=== PATIENT | male | born 1950 | race Caucasian/White ===

== ENCOUNTER 2025-04-22 15:18 | Outpatient (AMB) | payer OTHER, SELFPAY ==
--- NOTE | 2025-04-22 15:29 | MHC.PC.OV ---
Vital Signs 04/22/25 15:34 Height 6 ft Weight 191 lb BMI 25.9 BP 126/74 Blood Pressure Location Rt brachial Position Sitting Pulse 71 Pulse Source Pulse Oximeter Temp 98.3 F Temp Source Temporal Artery Scan Pulse Oximetry (%) 98 Oxygen Delivery Method Room Air Intake Visit Reasons: Cyst of Bottom R Foot/ Dr Varghese Probation Supervisor Required: No Accompanied by: Self / Same As Patient Allergies No Known Allergies Allergy (Verified 04/22/25 15:29) Tobacco use date assessed: 04/22/25 Fall risk assessment: No Falls in past year Last assessed Fall Risk: 04/22/25 Dental Screening Dental Screen Date: 04/22/25 Did you have a dental visit in the last 12 months?: Yes Did you have a dental problem in the last 6 months where you did not have access to dental care?: No HPI HPI Comments History of Present Illness Details The patient is a 74-year-old male without significant PMH presenting with a plantar wart on the right foot and concerns regarding preventative screenings due to family history of cancer. He is not currently on medication. The plantar wart has been causing discomfort, particularly due to the patient's habit of walking barefoot and wearing sandals during the summer. The patient is considering dermatological intervention or medication for treatment. The patient has a family history of cancer, with his father having of prostate cancer and his mother of breast cancer. He is concerned about his PSA levels and cholesterol, and desires these to be checked as part of his preventative care. The patient maintains an active lifestyle, engaging in gardening and house painting, and takes two aspirin nightly to alleviate discomfort from physical activity. He reports no current medications aside from aspirin and has no significant symptoms such as heart palpitations. [facility] Medical History (Updated 04/29/25 @ 06:18 by JOSELUIS Wills) Plantar wart of right foot Family History (Updated 04/22/25 @ 15:40 by Jojo Fonseca MA) Mother Breast cancer Father Prostate cancer Social History Housing: House Patient Tobacco Use Status: Former Tobacco user e-Cigarette/Vaping Use: Former Use service: No Current occupational status: retired Cognitive needs: No Hearing needs: No Vision needs: Yes (reading glasses) Questionnaire PHQ-9 Over the last 2 weeks, how often have you been bothered by any of the following problems? 1. Little interest or pleasure in doing things: not at all 2. Feeling down, depressed, or hopeless: not at all 3. Trouble falling or staying asleep, or sleeping too much: not at all 4. Feeling tired or having little energy: not at all 5. Poor appetite or overeating: not at all 6. Feeling bad about yourself - or that you are a failure or have let yourself or your family down: not at all 7. Trouble concentrating on things, such as reading the newspaper or watching television: not at all 8. Moving or speaking so slowly that other people could have noticed. Or the opposite - being so fidgety or restless that you have been moving around a lot more than usual: not at all Source: Developed by Drs. Estrada Bernal, Donna Wilkerson, Leonard Welch and colleagues, with an educational quang from [employer]. Thrive Questionnaire Date Thrive assessed: 04/22/25 I am a: Patient Within the past 12 months, did the food you bought not last and you didn't have the money to get more?: Never true Within the past 12 months, did you worry whether your food would run out before you got money to buy more?: Never true Do you have trouble paying for medicines?: No Do you have trouble getting transportation to medical appointments?: No Do you have trouble paying your heating and electricity bill?: No Do you have trouble taking care of your child, family member or friend?: No Do you have trouble with day-to-day activities such as bathing, preparing meals, shopping, managing finances, etc.?: No Are you currently unemployed and looking for a job?: No Are you interested in more education?: No THRIVE Score: 0 AUDIT C Alcohol Use Questionnaire (AUDIT-C) 1. How often do you have a drink containing alcohol?: Monthly or less 2. How many drinks containing alcohol do you have on a typical day when you are drinking?: 1 or 2 3. How often do you have six or more drinks on one occasion?: Less than monthly Total Score: 2 KYARA-7 AMB Questionnaire KYARA-7 Date KYARA - 7 assessed: 04/22/25 Feeling nervous, anxious, or on edge: 3 = Nearly every day Not being able to stop or control worryin = Not at all Worrying too much about different things: 0 = Not at all Trouble relaxin = Not at all Being so restless that it is hard to sit still: 0 = Not at all Becoming easily annoyed or irritable: 0 = Not at all Feeling afraid as if something awful might happen: 0 = Not at all Total KYARA-7 score (0-4 normal; 5-9 mild; 10-14 moderate; 15-21 severe): 3 Source: Developed by Drs. Estrada Bernal, Donna Wilkerson, Leonard Welch and colleagues, with an educational quang from [employer]. Review of Systems Const Details: CONSTITUTIONAL Negative HEAD/NECK Negative EAR/NOSE/MOUTH/THROAT Negative RESPIRATORY Negative CARDIOVASCULAR Negative GASTROINTESTINAL Negative SKIN Reports discomfort from plantar wart on the right foot NEUROLOGICAL Negative PSYCHIATRIC Negative . Physical exam (Primary Care) Vital Signs: Last Vital Signs Temp 98.3 F 04/22/25 15:34 Pulse 71 04/22/25 15:34 BP 126/74 04/22/25 15:34 Pulse Ox 98 04/22/25 15:34 Oxygen Delivery Method Room Air 04/22/25 15:34 BMI result Body Mass Index 25.9 GENERAL Well developed, Well nourished, in no apparent distress HEENT Head-Normocephalic Eyes- PERRLA, EOMI, Conjuctiva clear, lids WNL Ears- Canals clear, TMs WNL Mouth/Throat-No lesions, no erythema, no exudate Neck- Supple, No lymphadenopathy, thyroid WNL RESPIRATORY Normal I:E, Clear to auscultation CARDIOVASCULAR Regular, rate and rhthym, No murmurs or rubs GASTROINTESTINAL Soft, nontender, normal bowel sounds, no masses SKIN Plantar wart on the ball of right foot NEUROLOGICAL Gait normal PSYCHIATRIC Oriented to person, place and time Mood and affect WNL Appearance WNL Speech WNL Thought processes WNL Tobacco/Smoking Status: Tobacco use Status Tobacco use date assessed 04/22/25 04/22/25 15:30 Patient Tobacco Use Status Former Tobacco user 04/22/25 15:42 e-Cigarette/Vaping Use Former Use 04/22/25 15:42 Thrive Assessment: Date of Thrive Assessment Date Thrive assessed 04/22/25 04/22/25 15:30 Coding Level of Care Code New Pt New Pt Level 4 (24524) Patient Type New Diagnoses Plantar wart of right foot B07.0 Health care maintenance Z00.00 Time Spent (min) 30 Comment Time was spent on Chart review, H&P, Patient education and orders Assessment & Plan Assessment & Plan (1) Plantar wart of right foot: Code(s): B07.0 - Plantar wart Category: Medical Plan: The patient is advised to visit a it help desk manager for the management of the plantar wart on the right foot. The it help desk manager may perform procedures such as debridement and cryotherapy or electrosurgery to remove the wart. Referral places (2) Health care maintenance: Code(s): Z00.00 - Encounter for general adult medical examination without abnormal findings Plan: Due to the family history of prostate cancer, a PSA screening is requested. The patient will have the PSA test conducted at a nearby facility for convenience. A lipid profile screening is recommended to assess cholesterol levels. This will be conducted alongside the PSA screening for efficiency. An electrolyte panel is recommended to monitor potassium levels, which were previously elevated. This test will be conducted with the other screenings to ensure comprehensive evaluation. Plan I discussed with the patient the presence of a plantar wart on his right foot and recommended a referral to a it help desk manager for further management. We also reviewed PSA screening due to his family history of prostate cancer and agreed to conduct this test along with a lipid profile and electrolyte panel to ensure comprehensive preventative care. Orders: Orders Lipid Panel 04/22/25 E78.5 - Hyperlipidemia, unspecified Electrolytes 04/22/25 E87.5 - Hyperkalemia PSA, Ultra Sensitive 04/22/25 Z12.5 - Encounter for screening for malignant neoplasm of prostate Referrals Podiatry Referral B07.0 - Plantar wart Patient Instructions: - Schedule an appointment with a it help desk manager for the plantar wart. - Complete the lab work for PSA, lipid profile, and electrolytes as ordered. - Maintain current physical activity and aspirin regimen unless advised otherwise.
[2025-04-22 15:34] VITALS: BP 126/74; PULSE 71; TEMP 36.8; O2SAT 98; BMI 25.9
--- OUTSIDE RECORDS SUMMARY | 2025-04-22 18:24 | XMS_ITS | Clinical Summary ---
Author Organization [facility] Address [address] [phone] Phone Care Team Providers Care Wood Tile Installation Helper Name Role Phone Jarek Varghese MD Primary Care Provider Social History Tobacco Use Types Packs/Day Years Used Date Smoking Tobacco: Never Assessed Education Answer Date Recorded Are you interested in more education? Not on candice e 09/02/2023 Are you concerned about learning? Not on file 09/02/2023 No 09/02/2023 No 09/02/2023 Digital Access Answer Date Recorded No 09/02/2023 No 09/02/2023 Reliable internet access at home? Not on file 09/02/2023 Device with a working camera? Not on file Sex and Gender Information Value Date Recorded Sex Assigned at Not on file Legal Sex Male 12:35 PM EDT Gender Identity Not on file Sexual Orientation Not on file Plan of Treatment Not on file Medical Devices Not on file Insurance [facility] MEDICARE SUPPLEMENT MEDICARE PART A & B MEDICARE PART A & B [facility] MEDIC[facility] SUPPLEMENT [facility] MEDICARE SUPPLEMENT [facility] MEDIC[place] SUPP[place] MED[place] A [place] [id number] [facility] MEDICARE SUPPLEMENT [facility] MEDICARE SUPPLEMENT MEDICARE PART A & B [facility] MEDICARE SUPPLEMENT MEDICARE PART A & B [facility] MEDICARE SUPPLEMENT MEDICARE PART A & B Care Teams Wood Tile Installation Helper Relationship Specialty Start Date End Date Jarek Varghese MD [address] [place] [address] Dr MORALES [address] [place] [phone] PCP - General Internal Medicine 05/26/18 Additional Source Comments The information contained in this document represents components of the legal health record. It is not the complete legal health record.[facility]
== END 2025-04-22 16:14 | disposition home or self-care (01) ==
PROVIDERS: PCP Internal Medicine; Visit Provider Physician Assistant Medical
DX: B07.0 Plantar wart (principal)

== ENCOUNTER → 2025-04-22 15:18 | Outpatient (BNVA) | payer OTHER, SELFPAY | PROVIDERS: PCP Internal Medicine; Visit Provider Physician Assistant Medical | DX: Z13.31 Encounter for screening for depression (principal); Z13.39 Encounter for screening examination for other mental health and behavioral disorders | CPT/HCPCS: 96127 ==

== ENCOUNTER 2025-05-02 09:39 | Outpatient (AMB) | payer OTHER, SELFPAY ==
[2025-05-02 09:50] VITALS: BMI 27.4
--- NOTE | 2025-05-02 09:50 | MHC.OFFVIS ---
Vital Signs 05/02/25 09:50 Height 5 ft 10 in Weight 191 lb BMI 27.4 Intake Visit Reasons: painful plantar wart on ball of right foot. Intake Note: Adrián is a 74 year old male who presents today as a new patient for an evaluation of his plantar wart on the ball of his right foot. Patient reports this has been going on for about 2 months. he states he experiences pain when he is ambulating or standing but at rest it improves. Allergies No Known Allergies Allergy (Verified 04/22/25 15:29) HPI Comments Details: The patient is a 74-year-old male with a past medical history as seen below presenting with a plantar wart on the right foot. The issue began a couple of months ago when the patient noticed a small, sensitive bump on the foot. Initially, the patient delayed seeking medical attention, hoping the bump would decrease in size, but it instead increased. The patient consulted with a nurse practitioner who diagnosed the condition as a plantar wart and advised seeing a canal lock tender chief operator. The patient reports that the wart has been causing sensitivity when walking, especially if any particles get in between his shoes. There has been no drainage or signs of infection noted. He denies any inciting injury. He denies any other pedal concerns at this time. He denies any current foot nausea, vomiting, fever, or chills. [facility] Medical History (Updated 05/02/25 @ 10:57 by Rayna Diaz DPM) Pain in right foot Other specified epidermal thickening Plantar wart of right foot Family History (Updated 04/22/25 @ 15:40 by Jojo Fonseca MA) Mother Breast cancer Father Prostate cancer Social History Housing: House Patient Tobacco Use Status: Former Tobacco user e-Cigarette/Vaping Use: Former Use service: No Current occupational status: retired Cognitive needs: No Hearing needs: No Vision needs: Yes (reading glasses) Review of Systems Const Details: - Integumentary: Reports sensitivity on the foot due to plantar wart. Denies drainage or much purulence. All systems reviewed & are unremarkable except as noted in HPI and below Physical Exam Vital Signs: BMI result Body Mass Index 27.4 Extrem Other: Right lower extremity focused physical exam: Derm: Hyperkeratotic lesion consistent with a plantar wart noted to the plantar aspect of the right foot in the area of the 4th metatarsal measuring approximately 0.6 x 0.6 cm. Pinpoint bleeding noted upon debridement. No purulence or drainage noted. No erythema or edema noted. Vasc: DP/PT pulses palpable. Capillary refill time less than 3 seconds. No varicosities noted. Pedal hair present. Neuro: Protective sensation is grossly intact. MSK: Mild tenderness on palpation to the plantar wart. No fluctuance noted. Range of motion of the forefoot, hindfoot, and ankle within normal limits. No crepitus noted. Ankle/foot/toe images:  1. Office Procedures AMB Wart Destruction Podiatry Details of Procedure: Debrided the hyperkeratotic lesion to the right foot with a 15 blade. Applied cantharidin 0.7% solution to the plantar wart. After application applied a Band-Aid to the area. 01727 - Wart Destruction (<15) Additional procedure code (CPT) needed (31427) Office Meds cantharidin 0.7 % topical solution with applicator Performing Provider: Rayna Diaz DPM Performing Location: [facility] [place] [place] [facility] Administered by: Rayna Diaz DPM on 05/02/25 10:57 Dose Route Admin Location Dispensed Lot Number Expiration Date [facility] Electric Meter Installer Helper 1 appl topical 1 appl [id number] [employer] Results Reviewed Results Reviewed: Reviewed patient's previous prominence with Internal Medicine and dermatology. Assessment & Plan Assessment & Plan (1) Plantar wart of right foot: Code(s): B07.0 - Plantar wart Category: Medical (2) Other specified epidermal thickening: Code(s): L85.8 - Other specified epidermal thickening Category: Medical (3) Pain in right foot: Code(s): M79.671 - Pain in right foot Category: Medical Plan Patient was informed and verbally consented to the use of an ambient scribe for clinic note documentation during this visit. I explained to the patient that the plantar wart is caused by a virus, creating its own blood vessels. We discussed the treatment plan, which involves shaving the hyperkeratotic lesion to the wart to achieve pinpoint bleeding, allowing the medication to penetrate effectively. I informed the patient that the wart currently appears mild and that follow-up in two weeks is necessary to continue treatment. 1. Plantar Wart - Plan includes shaving down the wart to reach pinpoint bleeding, followed by application of medication. - Patient advised to return in two weeks for follow-up treatment. - Keep the Band-Aid on for the rest of the day and remove it tomorrow. - No need to apply any ointments; keep the area clean with a Band-Aid if desired. Return for a follow-up appointment in two weeks for continued cantharidin treatment.. Orders: Orders AMB Wart Destruction Podiatry Today B07.0 - Plantar wart, L85.8 - Other specified epidermal thickening, M79.671 - Pain in right foot Coding Level of Care Code New Pt Level 4 (68974) Diagnoses Plantar wart of right foot B07.0 Other specified epidermal thickening L85.8 Pain in right foot M79.671 CPT Codes Destruction of Wart - CPT: 44922 - Wart Destruction (<15) ([id number]) Destruction of Wart - All charges added?: Additional procedure code (CPT) needed ([id number]) Time Spent (min) 60
--- OUTSIDE RECORDS SUMMARY | 2025-05-02 11:18 | XMS_ITS | Clinical Summary ---
Author Organization [facility] Address [address] [phone] Phone Care Team Providers Care Belt Lacer Name Role Phone Jarek Varghese MD Primary [...] file Medical Devices Not on file Insurance [facility] MEDICARE SUPPLEMENT MEDICARE PART A & B MEDICARE PART A & B [facility] MEDICARE SUPPLEMENT [facility] MEDICARE SUPPLEMENT [facility] MEDICARE SUPP[place] MED[place] A [place] [id number] [facility] MEDICARE SUPPLEMENT [facility] MEDICARE SUPPLEMENT MEDICARE PART A & B [facility] MEDICARE SUPPLEMENT MEDICARE PART A & B [facility] MEDICARE SUPPLEMENT MEDICARE PART A & B Care Teams Belt Lacer Relationship Specialty Start Date End Date Jarek Varghese MD [address] [place] [address] Dr MORALES [address] [place] [id number] PCP - General Internal Medicine 05/26/18 Additional Source Comments The information contained in this document represents components of the legal health record. It is not the complete legal health record.[facility]
== END 2025-05-02 10:38 | disposition home or self-care (01) ==
LOC: HO.HPODS 09:40
PROVIDERS: PCP Internal Medicine; Visit Provider Student in an Organized Health Care Education/Training Program
DX: B07.0 Plantar wart (principal); L85.8 Other specified epidermal thickening; M79.671 Pain in right foot
CPT/HCPCS: 17110; 99203

== ENCOUNTER → 2025-05-02 09:39 | Outpatient (BNVA) | payer OTHER, SELFPAY | PROVIDERS: PCP Internal Medicine; Visit Provider Student in an Organized Health Care Education/Training Program | DX: B07.0 Plantar wart (principal); L85.8 Other specified epidermal thickening; M79.671 Pain in right foot | CPT/HCPCS: 17110; J7354 ==

== ENCOUNTER 2025-05-13 10:21 | Outpatient (AMB) | payer OTHER, SELFPAY ==
[2025-05-13 10:29] VITALS: BMI 27.4
--- NOTE | 2025-05-13 10:29 | A.OFFVIS_ITS ---
Vital Signs 05/13/25 10:29 Height 5 ft 10 in Weight 191 lb BMI 27.4 Intake Visit Reasons: for plantar wart management Intake Note: Adrián is a 74 year old male who presents today for a follow up on his plantar wart of the right foot. A wart deconstruction was performed in office on 05/02/25. Patient reports the initial pain has gone away after a couple of days however the wart is still there and he has been maintaining the area clean. Allergies No Known Allergies Allergy (Verified 05/13/25 10:31) HPI Comments Details: The patient is a 74-year-old male presenting for follow-up of right foot with plantar wart management. The patient reported that the right foot was painful for a few days initially after the previous visit/treatment, but the pain subsided over time. He has been diligent in keeping the area clean and covered with a Band-Aid. He experienced pain while walking during the first couple of days, but it has since resolved. The plantar wart appears to be reduced in size. The reduction in size indicates improvement, with less blood vessel formation observed. He denies any other pedal concerns at this time. He denies any current foot nausea, vomiting, fever, or chills. [facility] Medical History (Updated 05/02/25 @ 10:57 by Rayna Diaz DPM) Pain in right foot Other specified epidermal thickening Plantar wart of right foot Family History (Updated 04/22/25 @ 15:40 by Jojo Fonseca MA) Mother Breast cancer Father Prostate cancer Social History Housing: House Patient Tobacco Use Status: Former Tobacco user e-Cigarette/Vaping Use: Former Use service: No Current occupational status: retired Cognitive needs: No Hearing needs: No Vision needs: Yes (reading glasses) Review of Systems Const Details: - Integumentary: Plantar wart to the right foot. All systems reviewed & are unremarkable except as noted in HPI and below Physical Exam Vital Signs: BMI result Body Mass Index 27.4 Extrem Other: Right lower extremity focused physical exam: Derm: Hyperkeratotic lesion consistent with a plantar wart noted to the plantar aspect of the right foot in the area of the 4th metatarsal measuring approximately 0.5 x 0.5 cm (reduced in size in comparison to last visit). Pinpoint bleeding noted upon debridement (less blood vessle formation noted). No purulence or drainage noted. No erythema or edema noted. Vasc: DP/PT pulses palpable. Capillary refill time less than 3 seconds. No varicosities noted. Pedal hair present. Neuro: Protective sensation is grossly intact. MSK: No tenderness on palpation noted to the plantar wart. No fluctuance noted. Range of motion of the forefoot, hindfoot, and ankle within normal limits. No crepitus noted. Office Procedures AMB Wart Destruction Podiatry Details of Procedure: Debrided the hyperkeratotic lesion using a #15 blade until pinpoint bleeding noted. Next applied 0.7% Cantharidin solution to the plantar wart and applied a bandaid to the area. 16995 - Wart Destruction (<15) Additional procedure code (CPT) needed (99733) Office Meds cantharidin 0.7 % topical solution with applicator Performing Provider: Rayna Diaz DPM Performing Location: [facility] [place] [facility] Administered by: Rayna Diaz DPM on 05/13/25 10:58 Dose Route Admin Location Dispensed Lot Number Expiration Date [facility] Forest [employer] Professor 1 appl topical 1 appl [id number] [employer] Results Reviewed Results Reviewed: Reviewed patient's previous prominence with Internal Medicine and dermatology. Assessment & Plan Assessment & Plan (1) Plantar wart of right foot: Code(s): B07.0 - Plantar wart Category: Medical (2) Other specified epidermal thickening: Code(s): L85.8 - Other specified epidermal thickening Category: Medical (3) Pain in right foot: Code(s): M79.671 - Pain in right foot Category: Medical Plan Patient was informed and verbally consented to the use of an ambient scribe for clinic note documentation during this visit. I discussed with the patient the current status of the plantar wart, noting the reduction in size and decreased vascularity, which are positive signs of healing. We agreed to continue the current treatment plan and scheduled a follow-up in two weeks to monitor progress. 1. Plantar Wart, right foot - Debrided the wart to reach pinpoint bleeding, followed by application of Cantharidin. - Patient is to keep the Band-Aid on for the rest of the day and remove it tomorrow. - No need to apply any ointments; keep the area clean with a Band-Aid. - Patient is to monitor his feet daily, and is to monitor for any signs of infection or increased pain. Return for a follow-up appointment in two weeks for continued evaluation and treatment. Orders: Orders AMB Wart Destruction Podiatry Today B07.0 - Plantar wart, L85.8 - Other specified epidermal thickening, M79.671 - Pain in right foot Coding Level of Care Code Est Pt Level 4 (22698) Diagnoses Plantar wart of right foot B07.0 Other specified epidermal thickening L85.8 Pain in right foot M79.671 CPT Codes Destruction of Wart - CPT: 00142 - Wart Destruction (<15) ([id number]) Destruction of Wart - All charges added?: Additional procedure code (CPT) needed ([id number]) Time Spent (min) 45
--- OUTSIDE RECORDS SUMMARY | 2025-05-13 11:31 | XMS_ITS | Clinical Summary ---
Author Organization [facility] Address [address] [phone] Phone Care Team Providers Care Digital Performance Analyst Name Role Phone Jarek Varghese MD Primary [...] file Medical Devices Not on file Insurance [facility] MEDICARE SUPPLEMENT MEDICARE PART A & B MEDICARE PART A & [facility] MEDIC[facility] SUPPLEMENT [facility] MEDICARE SUPPLEMENT [facility] MEDICARE SUPP[place] A [place] [id number] [facility] MEDICARE SUPPLEMENT [facility] MEDICARE SUPPLEMENT MEDICARE PART A & B [facility] MEDICARE SUPPLEMENT MEDICARE PART A & B [facility] MEDICARE SUPPLEMENT MEDICARE PART A & B Care Teams Digital Performance Analyst Relationship Specialty Start Date End Date Jarek Varghese MD [address] [place] [address] Dr MORALES [address] [place] [id number] PCP - General Internal Medicine 05/26/18 Additional Source Comments The information contained in this document represents components of the legal health record. It is not the complete legal health record.[facility]
== END 2025-05-13 10:42 | disposition home or self-care (01) ==
LOC: HO.HPODS 10:22
PROVIDERS: PCP Internal Medicine; Visit Provider Student in an Organized Health Care Education/Training Program
DX: B07.0 Plantar wart (principal); M79.671 Pain in right foot; L85.8 Other specified epidermal thickening
CPT/HCPCS: 17110

== ENCOUNTER → 2025-05-13 10:21 | Outpatient (BNVA) | payer OTHER, SELFPAY | PROVIDERS: PCP Internal Medicine; Visit Provider Student in an Organized Health Care Education/Training Program | DX: B07.0 Plantar wart (principal); L85.8 Other specified epidermal thickening; M79.671 Pain in right foot | CPT/HCPCS: 17110; J7354 ==

== ENCOUNTER 2025-05-28 09:31 | Outpatient (AMB) | payer OTHER, SELFPAY ==
[2025-05-28 09:38] VITALS: BMI 27.4
--- NOTE | 2025-05-28 09:38 | A.OFFVIS_ITS ---
Vital Signs 05/28/25 09:38 Height 5 ft 10 in Weight 191 lb BMI 27.4 Intake Visit Reasons: OV- Right Plantar Wart Intake Note: Adrián is a 74 year old male who presents today for a follow up of right foot plantar wart. At the last visit a Wart destruction completed. Patient was instructed to keep area clean with an band-aid. Pt reports he has experiencing slight tenderness in his foot when he bears weight while ambulating. Overall he states his foot is healing well and he does not have any concercns at this time. Allergies No Known Allergies Allergy (Verified 05/28/25 09:52) HPI Comments Details: The patient is a 74-year-old male presenting for follow-up of a right foot plantar wart. The condition has been persistent, with the patient noting sensitivity in the affected area within the 1st week of the last treatment. He denies any current pain today to the area. The patient has been adhering to aftercare instructions, including keeping the area clean and protected with a Band-Aid. He has reduced the use of flip-flops due to weather conditions, opting for clean shoes and socks instead. Denies any new pedal injuries. He denies any other pedal concerns at this time. He denies any current foot nausea, vomiting, fever, or chills. [facility] Medical History (Updated 05/02/25 @ 10:57 by Rayna Diaz DPM) Pain in right foot Other specified epidermal thickening Plantar wart of right foot Family History (Updated 04/22/25 @ 15:40 by Jojo Fonseca MA) Mother Breast cancer Father Prostate cancer Social History Housing: House Patient Tobacco Use Status: Former Tobacco user e-Cigarette/Vaping Use: Former Use service: No Current occupational status: retired Cognitive needs: No Hearing needs: No Vision needs: Yes (reading glasses) Review of Systems Const Details: - Integumentary: Plantar wart to the right foot. All systems reviewed & are unremarkable except as noted in HPI and below Physical Exam Vital Signs: BMI result Body Mass Index 27.4 Extrem Other: Right lower extremity focused physical exam: Derm: Hyperkeratotic lesion consistent with a plantar wart noted to the plantar aspect of the right foot in the area of the 4th metatarsal measuring approximately 0.4 x 0.4 cm upon debridement (reduced in size in comparison to last visit). Pinpoint bleeding noted upon debridement (reduced blood vessel formation noted). No purulence or drainage noted. No erythema or edema noted. Vasc: DP/PT pulses palpable. Capillary refill time less than 3 seconds. No varicosities noted. Pedal hair present. Neuro: Protective sensation is grossly intact. MSK: Mild tenderness on palpation noted to the plantar wart and during debridement. No fluctuance noted. Range of motion of the forefoot, hindfoot, and ankle within normal limits. No crepitus noted. No fluctuance noted. Office Procedures AMB Wart Destruction Podiatry Details of Procedure: Debrided the hyperkeratotic lesion associated with the plantar wart noted on the plantar aspect of the right foot using a 15. Blade. Upon debridement pinpoint bleeding was noted and at this time Cantharidin 0.7% solution was applied to the plantar wart. Next a Band-Aid was applied to the area. Provided patient with aftercare instructions. 45669 - Wart Destruction (<15) Additional procedure code (CPT) needed ([id number]) Office Meds cantharidin 0.7 % topical solution with applicator Performing Provider: Rayna Diaz DPM Per[place] Location[place] [facility] [place] Administered by: Rayna Diaz DPM on 05/28/25 10:01 Dose Route Admin Location Dispensed Lot Number Expiration Date [facility] Hardwood Floor Installation Helper 1 appl topical 1 appl [id number] [employer] AC Assessment & Plan Assessment & Plan (1) Plantar wart of right foot: Code(s): B07.0 - Plantar wart Category: Medical (2) Other specified epidermal thickening: Code(s): L85.8 - Other specified epidermal thickening Category: Medical (3) Pain in right foot: Code(s): M79.671 - Pain in right foot Category: Medical Plan Patient was informed and verbally consented to the use of an ambient scribe for clinic note documentation during this visit. I discussed with the patient the nature of plantar warts and the expected timeline for resolution, emphasizing the importance of adhering to the aftercare regimen to promote healing. We reviewed the application of medication to the affected area and the need for follow-up in two weeks to assess progress and determine if further treatment is necessary. - Debrided the wart to reach pinpoint bleeding, followed by application of Cantharidin. - Patient is to keep the Band-Aid on for the rest of the day and remove it tomorrow. - Continue with current aftercare regimen, including keeping the area clean and protected with a Band-Aid or dressing. - Patient is to monitor his feet daily, and is to monitor for any signs of infection or increased pain. - Patient is to avoid barefoot walking. RTC in 2 weeks for continued evaluation and treatment. Orders: Orders AMB Wart Destruction Podiatry Today B07.0 - Plantar wart, L85.8 - Other specified epidermal thickening, M79.671 - Pain in right foot Coding Level of Care Code Est Pt Level 4 (73633) Diagnoses Plantar wart of right foot B07.0 Other specified epidermal thickening L85.8 Pain in right foot M79.671 CPT Codes Destruction of Wart - CPT: 31094 - Wart Destruction (<15) ([id number]) Destruction of Wart - All charges added?: Additional procedure code (CPT) needed ([id number]) Time Spent (min) 50
--- OUTSIDE RECORDS SUMMARY | 2025-05-28 10:34 | XMS_ITS | Clinical Summary ---
Author Organization [facility] Address [address] [phone] Phone Care Team Providers Care Ip Counsel Name Role Phone Jarek Varghese MD Primary [...] Medical Devices Not on file Insurance [facility] MEDICARE SUPPLEMENT MEDICARE PART A & B MEDICARE PART A & [facility] MEDIC[facility] SUPPLEMENT [facility] MEDICARE SUPPLEMENT [facility] MEDIC[place]PP[place] [id number] [facility] MEDICARE SUPPLEMENT [facility] MEDICARE SUPPLEMENT MEDICARE PART A & B [facility] MEDICARE SUPPLEMENT MEDICARE PART A & B [facility] MEDICARE SUPPLEMENT MEDICARE PART A & B Care Teams Ip Counsel Relationship Specialty Start Date End Date Jarek Varghese MD [address] [place] [address] Dr MORALES [address] [place] [id number] PCP - General Internal Medicine 05/26/18 Additional Source Comments The information contained in this document represents components of the legal health record. It is not the complete legal health record.[facility]
== END 2025-05-28 09:58 | disposition home or self-care (01) ==
LOC: HO.HPODS 09:31
PROVIDERS: PCP Internal Medicine; Visit Provider Student in an Organized Health Care Education/Training Program
DX: M79.671 Pain in right foot (principal); B07.0 Plantar wart; L85.8 Other specified epidermal thickening
CPT/HCPCS: 17110; 99213

== ENCOUNTER → 2025-05-28 09:31 | Outpatient (BNVA) | payer OTHER, SELFPAY | PROVIDERS: PCP Internal Medicine; Visit Provider Student in an Organized Health Care Education/Training Program | DX: B07.0 Plantar wart (principal); L85.8 Other specified epidermal thickening; M79.671 Pain in right foot | CPT/HCPCS: 17110; J7354 ==

== ENCOUNTER 2025-06-11 09:35 | Outpatient (AMB) | payer OTHER, SELFPAY ==
--- NOTE | 2025-06-11 09:45 | A.OFFVIS_ITS ---
Vital Signs 06/11/25 09:54 Height 5 ft 10 in Weight 191 lb BMI 27.4 Intake Visit Reasons: plantars wart Intake Note: Adrián is a 75 year old male who presents to the office today for a follow up in 3 weeks for his plantar wart. At last visit a plantar wart of his right foot was debrided. Pt states his foot is doing okay and he believes the wart has gotten smaller However patient notes more tenderness after his most recent debridement Allergies No Known Allergies Allergy (Verified 06/11/25 09:55) HPI Comments Details: The patient is a 75-year-old male presenting for follow-up of a right foot plantar wart. The patient reports that the area has been sensitive for the past week, with hopes that it is reducing in size. The patient has been managing the condition by applying a Band-Aid with Neosporin to keep the area covered and protected. There has been minimal bleeding, and the patient denies any pain at present. He denies any blistering from the medication at this time. Denies any new pedal injuries. He denies any other pedal concerns at this time. He denies any current foot nausea, vomiting, fever, or chills. [facility] Medical History (Updated 05/02/25 @ 10:57 by Rayna Diaz DPM) Pain in right foot Other specified epidermal thickening Plantar wart of right foot Family History (Updated 04/22/25 @ 15:40 by Jojo Fonseca MA) Mother Breast cancer Father Prostate cancer Social History Housing: House Patient Tobacco Use Status: Former Tobacco user e-Cigarette/Vaping Use: Former Use service: No Current occupational status: retired Cognitive needs: No Hearing needs: No Vision needs: Yes (reading glasses) Review of Systems Const Details: - Integumentary: Plantar wart to the right foot. All systems reviewed & are unremarkable except as noted in HPI and below Physical Exam Vital Signs: BMI result Body Mass Index 27.4 Extrem Other: Right lower extremity focused physical exam: Derm: Hyperkeratotic lesion consistent with a plantar wart noted to the plantar aspect of the right foot in the area of the 4th metatarsal measuring approximately 0.2 x 0.2 cm upon debridement (reduced in size in comparison to last visit). Mild Pinpoint bleeding noted upon debridement (reduced blood vessel formation noted). No purulence or drainage noted. No erythema or edema noted. Vasc: DP/PT pulses palpable. Capillary refill time less than 3 seconds. No varicosities noted. Pedal hair present. Neuro: Protective sensation is grossly intact. MSK: Minimal tenderness on palpation noted to the plantar wart and during debridement. No fluctuance noted. Range of motion of the forefoot, hindfoot, and ankle within normal limits. No crepitus noted. No fluctuance noted. Office Procedures AMB Wart Destruction Podiatry Details of Procedure: Debrided the hyperkeratotic lesion associated with the plantar wart noted on the plantar aspect of the right foot using a 15. Blade. Upon debridement pinpoint bleeding was noted and at this time Cantharidin 0.7% solution was applied to the plantar wart. Next a Band-Aid was applied to the area. Provided patient with aftercare instructions. 37096 - Wart Destruction (<15) Additional procedure code (CPT) needed ([id number]) Office Meds cantharidin 0.7 % topical solution with applicator Performing Provider: Rayna Diaz DPM [place] [facility] [place] Administered by: Rayna Diaz DPM on 06/12/25 08:42 Dose Route Admin Location Dispensed Lot Number Expiration Date [facility] Performance Manager 1 appl topical 1 appl [id number] [facility] Assessment & Plan Assessment & Plan (1) Plantar wart of right foot: Code(s): B07.0 - Plantar wart Category: Medical (2) Other specified epidermal thickening: Code(s): L85.8 - Other specified epidermal thickening Category: Medical (3) Pain in right foot: Code(s): M79.671 - Pain in right foot Category: Medical Plan Patient was informed and verbally consented to the use of an ambient scribe for clinic note documentation during this visit. I discussed with the patient that the callus is larger than the plantar wart, which can make the lesion appear more significant than it is. I advised continuing the use of topical OTC plantar warts patches and monitoring for pinpoint bleeding. We agreed to follow up in two weeks to evaluate the progress. - Debrided the hyperkeratotic lesion and applied Canthardin to the plantar wart with a bandaid. - Continue using topical patches as previously advised to manage the plantar wart and callus. - Continue with current aftercare regimen, including keeping the area clean and protected with a Band-Aid or dressing. - Patient is to monitor his feet daily, and is to monitor for any signs of infection or increased pain. - Patient is to avoid barefoot walking. RTC in 2 weeks for continued evaluation and treatment. Orders: Orders AMB Wart Destruction Podiatry 06/11/25 B07.0 - Plantar wart, L85.8 - Other specified epidermal thickening, M79.671 - Pain in right foot Coding Level of Care Code Est Pt Level 4 (37055) Diagnoses Plantar wart of right foot B07.0 Other specified epidermal thickening L85.8 Pain in right foot M79.671 CPT Codes Destruction of Wart - CPT: 44399 - Wart Destruction (<15) ([id number]) Destruction of Wart - All charges added?: Additional procedure code (CPT) needed ([id number]) Time Spent (min) 50 Comment 15 mins for procedure
[2025-06-11 09:54] VITALS: BMI 27.4
--- OUTSIDE RECORDS SUMMARY | 2025-06-11 11:04 | XMS_ITS | Clinical Summary ---
Author Organization [facility] Address [address] [phone] Phone Care Team Providers Care County Engineer Name Role Phone Jarek Varghese MD Primary [...] file Medical Devices Not on file Insurance [facility] MEDICARE SUPPLEMENT MEDICARE PART A & B MEDICARE PART A & B [facility] MEDIC[place] SUPPLEMENT [facility] MEDICARE SUPPLEMENT [facility] MEDIC[place] SUPP[place] MED[place] A [place] [id number] [facility] MEDICARE SUPPLEMENT [facility] MEDICARE SUPPLEMENT MEDICARE PART A & B [facility] MEDICARE SUPPLEMENT MEDICARE PART A & B [facility] MEDICARE SUPPLEMENT MEDICARE PART A & B Care Teams County Engineer Relationship Specialty Start Date End Date Jarek Varghese MD [address] [place] [address] Dr MORALES [address] [place] [id number] PCP - General Internal Medicine 05/26/18 Additional Source Comments The information contained in this document represents components of the legal health record. It is not the complete legal health record.[facility]
== END 2025-06-11 10:05 | disposition home or self-care (01) ==
LOC: HO.HPODS 09:35
PROVIDERS: PCP Internal Medicine; Visit Provider Student in an Organized Health Care Education/Training Program
DX: B07.0 Plantar wart (principal)
CPT/HCPCS: 17110

== ENCOUNTER → 2025-06-11 09:35 | Outpatient (BNVA) | payer MEDICARE, OTHER, SELFPAY | PROVIDERS: PCP Internal Medicine; Visit Provider Student in an Organized Health Care Education/Training Program | DX: B07.0 Plantar wart (principal); L85.8 Other specified epidermal thickening; M79.671 Pain in right foot | CPT/HCPCS: 17110; J7354 ==

== ENCOUNTER 2025-06-25 10:36 | Outpatient (AMB) | payer MEDICARE, OTHER, SELFPAY ==
[2025-06-25 10:40] VITALS: BMI 27.4
--- NOTE | 2025-06-25 10:40 | A.OFFVIS_ITS ---
Vital Signs 06/25/25 10:40 Height 5 ft 10 in Weight 191 lb BMI 27.4 Intake Visit Reasons: plantars wart Intake Note: Adrián is a 75 year old male who presents to the office today for a follow up for his plantar wart. At his last visit patient was advised to Continue using topical patches as previously advised to manage the plantar wart and callus and to continue with current aftercare regimen, including keeping the area clean and protected with a Band-Aid or dressing. Today patient reports he is feeling well with no further concerns at this time. Allergies No Known Allergies Allergy (Verified 06/11/25 09:55) HPI Comments Details: The patient is a 75-year-old male presenting for follow-up of a right foot plantar wart. The patient reports that the area has been sensitive and he states he has been keeping the area covered with a Band-Aid and Neosporin. Patient states he has noticed some sensitivity with increased palpation to the area. He denies any blistering from the medication at this time. Denies any new pedal injuries. He denies any other pedal concerns at this time. He denies any current foot nausea, vomiting, fever, or chills. [facility] Medical History (Updated 05/02/25 @ 10:57 by Rayna Diaz DPM) Pain in right foot Other specified epidermal thickening Plantar wart of right foot Family History (Updated 04/22/25 @ 15:40 by Jojo Fonseca MA) Mother Breast cancer Father Prostate cancer Social History Housing: House Patient Tobacco Use Status: Former Tobacco user e-Cigarette/Vaping Use: Former Use service: No Current occupational status: retired Cognitive needs: No Hearing needs: No Vision needs: Yes (reading glasses) Review of Systems Const Details: - Integumentary: Plantar wart to the right foot. All systems reviewed & are unremarkable except as noted in HPI and below Physical Exam Vital Signs: BMI result Body Mass Index 27.4 Extrem Other: Right lower extremity focused physical exam: Derm: Hyperkeratotic lesion in the area of the plantar wart noted to the plantar aspect of the right foot in the area of the 4th metatarsal measuring. Upon debridement no pinpoint bleeding noted and plantar wart is noted to be resolved. Mild erythema noted to the area of the plantar wart upon debridement. No active purulence, bleeding, or drainage noted. Vasc: DP/PT pulses palpable. Capillary refill time less than 3 seconds. No varicosities noted. Pedal hair present. Neuro: Protective sensation is grossly intact. MSK: Minimal tenderness on palpation noted to the area of the heel plantar wart and during debridement. No fluctuance noted. Range of motion of the forefoot, hindfoot, and ankle within normal limits. No crepitus noted. No fluctuance n oted. Office Procedures AMB Wart Destruction Podiatry Details of Procedure: Debrided the hyperkeratotic lesion associated with the plantar wart noted on the plantar aspect of the right foot using a 15. Blade. Upon debridement no pinpoint bleeding was noted and Cantharidin 0.7% solution is not deemed necessary at this time due to resolved nature of the plantar wart. Next a Band- Aid was applied to the area. Provided patient with aftercare instructions. Additional procedure code (CPT) needed ([id number]) Office Meds cantharidin 0.7 % topical solution with applicator Performing Provider: Rayna Diaz DPM Performing Location: [facility] [place]-[facility] Documented (not given) by: Rayna Diaz DPM on 06/25/25 11:09 Reason Not Given: No Longer Necessary Assessment & Plan Assessment & Plan (1) Plantar wart of right foot: Code(s): B07.0 - Plantar wart Category: Medical (2) Other specified epidermal thickening: Code(s): L85.8 - Other specified epidermal thickening Category: Medical (3) Pain in right foot: Code(s): M79.671 - Pain in right foot Category: Medical Plan Patient was informed and verbally consented to the use of an ambient scribe for clinic note documentation during this visit. I discussed with the patient the current status of the plantar wart, noting that it has resolved. We reviewed the importance of continuing to protect the area with a Band-Aid and applying Neosporin to prevent infection and due to erythema and raw nature of the debrided area.. I advised the patient to monitor for any changes and to return if symptoms worsen or do not improve. - Debrided the hyperkeratotic lesion which showed a healed plantar wart. Cantharidin no longer necessary at this time. - Continue to monitor the the affected area for any changes in size or symptoms. - Apply Neosporin and a Band-Aid to prevent infection and protect the area as needed. - Patient is to monitor his feet daily, and is to monitor for any signs of infection or increased pain. - Patient is to avoid barefoot walking and is to wear supportive shoe gear. RTC PRN. Orders: Orders AMB Wart Destruction Podiatry Today B07.0 - Plantar wart, L85.8 - Other specified epidermal thickening, M79.671 - Pain in right foot Coding Level of Care Code Est Pt Level 3 (16236) Diagnoses Plantar wart of right foot B07.0 Other specified epidermal thickening L85.8 Pain in right foot M79.671 CPT Codes Destruction of Wart - All charges added?: Additional procedure code (CPT) needed ([id number]) Time Spent (min) 30 Comment 5 mins for procedure
--- OUTSIDE RECORDS SUMMARY | 2025-06-25 12:13 | XMS_ITS | Clinical Summary ---
Author Organization [facility] Address [address] [phone] Phone Care Team Providers Care Assembler For Puller Over Hand Name Role Phone Jarek Varghese MD Primary [...] file Medical Devices Not on file Insurance [facility] MEDICARE SUPPLEMENT MEDICARE PART A & B MEDICARE PART A & B [facility] MEDIC[place] SUPPLEMENT [facility] MEDICARE SUPPLEMENT [facility] MEDICARE SUPP[place] MED[place] A [place] [id number] [facility] MEDICARE SUPPLEMENT [facility] MEDICARE SUPPLEMENT MEDICARE PART A & B [facility] MEDICARE SUPPLEMENT MEDICARE PART A & B [facility] MEDICARE SUPPLEMENT MEDICARE PART A & B Care Teams Assembler For Puller Over Hand Relationship Specialty Start Date End Date Jarek Varghese MD [address] [place] [address] Dr MORALES [address] [place] [id number] PCP - General Internal Medicine 05/26/18 Additional Source Comments The information contained in this document represents components of the legal health record. It is not the complete legal health record.[facility]
== END 2025-06-25 11:59 | disposition home or self-care (01) ==
PROVIDERS: PCP Internal Medicine; Visit Provider Student in an Organized Health Care Education/Training Program
DX: B07.0 Plantar wart (principal); L85.8 Other specified epidermal thickening; M79.671 Pain in right foot
CPT/HCPCS: 11305; 99213

== ENCOUNTER → 2025-06-25 10:36 | Outpatient (BNVA) | payer MEDICARE, OTHER, SELFPAY | PROVIDERS: PCP Internal Medicine; Visit Provider Student in an Organized Health Care Education/Training Program | DX: B07.0 Plantar wart (principal); L85.8 Other specified epidermal thickening; M79.671 Pain in right foot | CPT/HCPCS: 11305; 99212 ==

== ENCOUNTER 2025-08-05 11:44 | Outpatient (REF) | payer MEDICARE, OTHER, SELFPAY ==
[2025-08-05 13:37] LABS: Anion Gap 12 (12-20); Carbon Dioxide 25 mmol/L (22-29); Chloride 108 mmol/L (96-108); Cholesterol 235 mg/dL (<200); HDL Cholesterol 48 mg/dL (>40); Potassium 4.6 mmol/L (3.3-5.1); Sodium 140 mmol/L (135-145); Triglycerides 226 mg/dL (<150)
[2025-08-09 17:19] LABS: PSA, Ultra Sensitive 4.00 ng/mL
== END 2025-08-05 11:45 | disposition home or self-care (01) ==
LOC: HO.10HDL 11:44
PROVIDERS: PCP Internal Medicine; Visit Provider Physician Assistant Medical
DX: B07.0 Plantar wart (principal); E87.5 Hyperkalemia; E78.5 Hyperlipidemia, unspecified; R97.20 Elevated prostate specific antigen [PSA]; Z80.9 Family history of malignant neoplasm, unspecified; Z12.5 Encounter for screening for malignant neoplasm of prostate
CPT/HCPCS: 36415; 80051; 80061; 84153; 99212